=== PATIENT | female | born 1940 | race Caucasian/White ===

== ENCOUNTER 2019-03-01 08:57 | Observation (INO) ==
[2019-03-01] MEDS ORDERED: ASPIRIN 325 MG TABLET PO STA (09:38)
[2019-03-01 09:52] LABS: Basophils # 0.1 10*3/uL (0.0-0.2); Basophils % 1.1 % (0.0-0.8); Eosinophils # 0.1 10*3/uL (0.0-0.87); Eosinophils % 1.3 % (0.00-10.9); Hematocrit 25.4 VOL% (35.7-47.0); Hemoglobin 7.8 GM/DL (12.0-16.0); Immature Granulocytes % 3.2 %; Immature Granulocytes Absolute 0.15 #; Lymphocytes # 1.6 10*3/uL (1.4-4.0); Lymphocytes % 34.9 % (21.3-54.2); Mean Corpuscular HGB Conc 30.7 GM/DL (32-36); Mean Corpuscular Volume 93.4 FL (87-102); Mean Platelet Volume 10.3 FL (9.6-12.0); Monocytes % 14.5 % (1.7-12.7); NRBC # 0.29 10*3/uL; Platelet Count 118 T/CUMM (130-400); Red Blood Count 2.72 MC/CUMM (3.8-5.5); Red Cell Distribution Width 17.2 % (9.3-17.3); White Blood Count 4.7 T/CUMM (4-12)
[2019-03-01 10:11] LABS: Albumin 3.5 G/DL (3.4-5.0); Bilirubin,Total 0.4 MG/DL (0.2-1.0); Calcium 9.2 MG/DL (8.5-10.1); Osmolality,Calculated 284.5 MOS/KG (273-304); Total Protein 7.8 G/DL (6.4-8.3)
[2019-03-01 10:45] LABS: Apearance,Urine CLEAR (Clear); Bilirubin,Urine Negative (Negative); Blood, Urine Negative (Negative); Glucose,Urine (UA) Negative (Negative); Hyaline Casts,Urine 4 /LPF (0-3); Ketones,Urine Negative (Negative); Mucus,Urine Occasional /LPF (Occasional); Nitrite,Urine Negative (Negative); Protein,Urine Negative; RBC,Urine 1 /HPF (0-4); Squamous Epithelial Cell,Urine Occasional /HPF (0-10); Urine Color Yellow (Yellow); Urine Specific Gravity 1.012 (1.001-1.035); Urine Urobilinogen < 2.0 EU/DL (0.2-1.0)
[2019-03-01] MEDS ORDERED: GLUCAGON 1 MG VIAL IM PRN (11:56)
[2019-03-01] MEDS ORDERED: MORPHINE 4 MG/1 ML VIAL IV PRN (11:56)
[2019-03-01] MEDS ORDERED: DEXTROSE 50% 25 GM/50 ML VIAL IV PRN (11:56)
[2019-03-01] MEDS ORDERED: ONDANSETRON 4 MG/2 ML VIAL IV PRN (11:56)
[2019-03-01 12:27] LABS: % Iron Saturation 28.9 % (18-50); Ferritin 61.3 ng/ml (8-252)
[2019-03-01] MEDS ORDERED: INFLUENZA VIRUS VACCINE 0.5 ML SYRINGE IM ONE (15:03)
[2019-03-01] MEDS: SODIUM CHLORIDE 0.9% 1,000 ML IV SCH (15:35)
[2019-03-01] MEDS ORDERED: SODIUM CHLORIDE 0.9% 1,000 ML IV PRN (15:55)
[2019-03-01] MEDS: INSULIN LISPRO 100 UNIT/ML SUBCUT SCH ×2 (16:29→22:15)
[2019-03-01 16:51] LABS: Folate 12.6 NG/ML (5.4-24.0)
[2019-03-02] MEDS: SODIUM CHLORIDE 0.9% 1,000 ML IV SCH ×3 (00:42→15:54)
[2019-03-02 05:09] LABS: Basophils # 0.1 10*3/uL (0.0-0.2); Eosinophils # 0.1 10*3/uL (0.0-0.87); Eosinophils % 1.4 % (0.00-10.9); Hematocrit 30.1 VOL% (35.7-47.0); Hemoglobin 9.8 GM/DL (12.0-16.0); Immature Granulocytes % 2.5 %; Immature Granulocytes Absolute 0.12 #; Lymphocytes # 1.9 10*3/uL (1.4-4.0); Lymphocytes % 39.5 % (21.3-54.2); Mean Corpuscular HGB Conc 32.6 GM/DL (32-36); Mean Corpuscular Volume 90.7 FL (87-102); Mean Platelet Volume 10.7 FL (9.6-12.0); Monocytes % 12.5 % (1.7-12.7); Neutrophils % 43.1 % (38.7-73.9); Platelet Count 115 T/CUMM (130-400); Red Blood Count 3.32 MC/CUMM (3.8-5.5); Red Cell Distribution Width 15.9 % (9.3-17.3); White Blood Count 4.9 T/CUMM (4-12)
[2019-03-02 05:18] LABS: Albumin 3.3 G/DL (3.4-5.0); Bilirubin,Total 0.7 MG/DL (0.2-1.0); Calcium 8.6 MG/DL (8.5-10.1); Osmolality,Calculated 277.8 MOS/KG (273-304); Thyroid Stimulating Hormone 1.93 uIU/ml (0.358-3.74); Total Protein 7.4 G/DL (6.4-8.3)
[2019-03-02] MEDS: INSULIN LISPRO 100 UNIT/ML SUBCUT SCH ×4 (08:49→21:22)
[2019-03-02] MEDS: LOSARTAN 50 MG TABLET PO SCH (10:25)
[2019-03-02] MEDS: ATORVASTATIN 20 MG TABLET PO SCH (10:25)
[2019-03-02] MEDS: PANTOPRAZOLE 40 MG TABLET PO SCH (10:25)
[2019-03-02] MEDS: CHLORTHALIDONE 25 MG TABLET PO SCH (10:26)
[2019-03-02] MEDS: MELOXICAM 7.5 MG TABLET PO SCH (10:45)
[2019-03-02] MEDS ORDERED: DOCUSATE SODIUM 100 MG CAPSULE PO PRN (13:45)
[2019-03-02] MEDS: tiZANidine 4 MG TABLET PO PRN (14:08)
[2019-03-03] MEDS: SODIUM CHLORIDE 0.9% 1,000 ML IV SCH ×2 (00:07→06:20)
[2019-03-03 05:01] LABS: Basophils % 0.9 % (0.0-0.8); Eosinophils # 0.1 10*3/uL (0.0-0.87); Eosinophils % 1.7 % (0.00-10.9); Hematocrit 28.7 VOL% (35.7-47.0); Hemoglobin 9.6 GM/DL (12.0-16.0); Immature Granulocytes % 1.5 %; Immature Granulocytes Absolute 0.07 #; Lymphocytes # 1.3 10*3/uL (1.4-4.0); Lymphocytes % 27.7 % (21.3-54.2); Mean Corpuscular HGB Conc 33.4 GM/DL (32-36); Mean Corpuscular Volume 90.5 FL (87-102); Mean Platelet Volume 10.4 FL (9.6-12.0); Monocytes % 11.3 % (1.7-12.7); NRBC # 0.17 10*3/uL; Neutrophils % 56.9 % (38.7-73.9); Platelet Count 115 T/CUMM (130-400); Red Blood Count 3.17 MC/CUMM (3.8-5.5); Red Cell Distribution Width 15.9 % (9.3-17.3); White Blood Count 4.7 T/CUMM (4-12)
[2019-03-03 05:20] LABS: Albumin 3.1 G/DL (3.4-5.0); Bilirubin,Total 0.9 MG/DL (0.2-1.0); Calcium 8.3 MG/DL (8.5-10.1); Osmolality,Calculated 278.7 MOS/KG (273-304)
[2019-03-03] MEDS: tiZANidine 4 MG TABLET PO PRN (07:14)
[2019-03-03] MEDS: INSULIN LISPRO 100 UNIT/ML SUBCUT SCH (07:38)
[2019-03-03] MEDS: MELOXICAM 7.5 MG TABLET PO SCH (09:04)
[2019-03-03] MEDS: PANTOPRAZOLE 40 MG TABLET PO SCH (09:04)
[2019-03-03] MEDS: LOSARTAN 50 MG TABLET PO SCH (09:04)
[2019-03-03] MEDS: CHLORTHALIDONE 25 MG TABLET PO SCH (09:04)
[2019-03-03] MEDS: ATORVASTATIN 20 MG TABLET PO SCH (09:07)
[2019-03-03] MEDS ORDERED: HEPARIN 5,000 UNIT/1 ML VIAL ONE (09:23)
[2019-03-03 10:24] VITALS: BP 135/80
== END 2019-03-03 11:49 | disposition home or self-care (01) ==
LOC: N.ED 08:57 → N.EDINP 08:57 → SUATTDRO 11:56 → N.2W 13:20
PROVIDERS: ADMIT Internal Medicine; ATTEND Internal Medicine